=== PATIENT | female | born 1945 | race Hispanic/Latino ===

== ENCOUNTER → 2021-06-01 | Outpatient (CLI) | payer OTHER | LOC: DX 08:49 | PROVIDERS: ATTEND Family Medicine | DX: Z13.820 Encounter for screening for osteoporosis (principal) | CPT/HCPCS: 77080 ==

== ENCOUNTER → 2022-09-06 | Outpatient (CLI) | payer OTHER | LOC: CT 11:33 | PROVIDERS: ATTEND Family Medicine | DX: R51.9 Headache, unspecified (principal); M95.2 Other acquired deformity of head; Z87.828 Personal history of other (healed) physical injury and trauma | CPT/HCPCS: 70450 ==